=== PATIENT | female | born 1995 | race American Indian/Alaskan Native ===

== ENCOUNTER 2017-03-24 21:54 | Inpatient (IN) | payer MEDICAID, OTHER ==
[2017-03-24 22:48] LABS: Basophils % (Auto) 0.3 % (0.0-1.8); Eosinophils % (Auto) 1.6 % (0.0-4.3); Hematocrit 30.6 % (30.3-42.9); Hemoglobin 10.5 gm/dl (10.1-14.3); Mean Corpuscular HGB Conc 34 % (30-34); Mean Corpuscular Hemoglobin 32 pg (28-32); Mean Corpuscular Volume 94 fl (79-97); Platelet Count 298 K/mm3 (140-440); Red Blood Count 3.25 M/mm3 (3.65-5.03); Red Cell Distribution Width 14.7 % (13.2-15.2); White Blood Count 7.6 K/mm3 (4.5-11.0)
--- NOTE | 2017-03-25 00:57 | Ultrasound Report ---
FINAL REPORT EXAM: US OB \T\gt; = 14 WEEKS FETUS HISTORY: vag bleed premature rupture membranes. COMPARISON: None available. TECHNIQUE: Several real-time grayscale and color Doppler images were obtained. Spectral analysis. FINDINGS: Single IUP. Estimated gestational age 17 weeks 3 days. Estimated delivery date August 29, 2017. No cardiac activity demonstrated. position vertex. Placenta location anterior fundal. Cervix appears to be closed measures less than 1 centimeter length. Marked oligo hydramnios. Largest pocket of amniotic fluid measures 8 millimeters. Limited evaluation of structures due to marked oligohydramnios. IMPRESSION: Marked oligohydramnios compatible patient's history of premature rupture of membranes. Single IUP. Estimated gestational age 17 weeks 3 days. No cardiac activity demonstrated compatible with demise.
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
[2017-03-25] MEDS ORDERED: CYTOTEC PO ONE ×2 (02:43→03:00)
[2017-03-25 02:44] LABS: Bilirubin,Urine NEG (Negative); Blood,Urine MOD (Negative); Ketones,Urine TR mg/dL (Negative); Leukocyte Esterase,Urine NEG (Negative); Mucus,Urine FEW /HPF; Nitrite,Urine NEG (Negative); Protein,Urine <15 mg/dL mg/dL (Negative); Urobilinogen,Urine < 2.0 mg/dL (<2.0); WBC,Urine < 1.0 /HPF (0.0-6.0)
[2017-03-25] MEDS ORDERED: CYTOTEC PO SCH ×2 (02:45→03:00)
--- NOTE | 2017-03-25 02:51 | History and Physical Report ---
History of Present Illness Date of examination: 03/25/17 Chief complaint: Premature rupture of membrane at 17 weeks History of present illness: 22-year-old 002 at 17+4 weeks presents with spontaneous rupture of membranes, she has no FIELD MARKETING COORDINATOR provider at this time. In the emergency room, ultrasound shows Single IUP with estimated gestational age 17+3 weeks (OREN 08/29/17). No cardiac activity demonstrated compatible with demise. Marked oligohydramnios compatible with patient's history of premature appropriate membranes Bimanual exam, I could feel parts in the vagina but the rest of the fetus still surrounded by cervix Minimal to no bleeding noted exam Past History Past Medical History: asthma (Mild), other (Bipolar disorder, anxiety disorder) Past Surgical History: section (# 2 (last in 2014)) [employer]NA[employer] History: denies: chlamydia, gonorrhea, hepatitis B, hepatitis C, herpes, HIV , syphilis, trichomonas Social history: single, full code. denies: smoking, alcohol abuse, prescription drug abuse, IV drug use - Obstetrical History Expected Date of Delivery: 08/29/17 Actual Gestation: 17 Week(s) 4 Day(s) : 3 Para: 2 Medications and Allergies Allergies Allergy/AdvReac Type Severity Reaction Status Date / Time amoxicillin Allergy Hives Unverified 12/07/14 08:19 lactase [From Dairy Aid] Allergy Hives Verified 12/07/14 08:19 Home Medications Medication Instructions Recorded Confirmed Last Taken Type Ferrous Sulfate [Iron Supplement] 325 mg PO DAILY 12/07/14 12/07/14 12/06/14 21: 00 History 1 Pnv95/Ferrous Fumarate/FA 1 each PO QDAY 12/07/14 12/07/14 12/05/14 21:00 History [ Vitamins] 1 Ranitidine HCl [Ranitidine 150mg 150 mg PO BID PRN 12/07/14 12/07/14 12/03/14 09 :00 History Cap] 1 Active Meds: Active Medications Misoprostol (Cytotec) 400 mcg PO Q4HR GM Stop: 03/25/17 10:01 Review of Systems Constitutional: no fever, no chills Eyes: no blurred vision, no diplopia Cardiovascular: no chest pain, no orthopnea, no palpitations, no syncope, no lightheadedness, no shortness of breath, no dyspnea on exertion, no high blood pressure Respiratory: no cough, no cough with sputum, no hemoptysis, no shortness of breath, no dyspnea on exertion Gastrointestinal: abdominal pain (intermittent crampy abdominal pain), no nausea , no vomiting Genitourinary: vaginal bleeding (Mild) - Vital Signs Vital signs: Vital Signs Temp Pulse Resp BP Pulse Ox 99.5 F 75 18 101/66 100 03/24/17 21:59 03/24/17 21:59 03/24/17 21:59 03/24/17 21:59 03/24/17 21:59 Temp Pulse Resp BP Pulse Ox 99.5 F 77 21 97/60 100 03/24/17 21:59 03/25/17 02:30 03/25/17 02:30 03/25/17 02:30 03/25/17 02:30 - Physical Exam Cardiovascular: Regular rate, Normal S1, Normal S2 Lungs: Positive: Clear to auscultation, Normal air movement Abdomen: Positive: normal appearance, soft. Negative: distention, tenderness, guarding, rigidity Genitourinary (Female): Positive: normal external genitalia Uterus: Negative: tender Adnexa: both: normal Extremities: Positive: normal - Obstetrical Cervical Dilatation: 6 Results Result Diagrams: 03/24/17 22:17 Abnormal lab results 03/24/17 03/24/17 Range/Units 22:17 22:17 RBC 3.25 L (3.65-5.03) M/mm3 Vernon % (Auto) 10.8 H (0.0-7.3) % HCG, Quant 77201 H (0-4) mIU/mL All other labs normal. Assessment and Plan A: 22-year-old 00 to a 17+4 weeks with PPROM followed by demise -Stable P: -Admit -UDS -Misoprostol 400 g every 4 hours 3 doses -Nothing by mouth for now - Patient Problems (1) 17 weeks gestation of Current Visit: Yes Status: Acute (2) premature rupture of membranes with onset of labor more than 24 hours following rupture Current Visit: Yes Status: Acute (3) demise Current Visit: Yes Status: Acute
[2017-03-25] MEDS ORDERED: MINERAL OIL PO PRN (02:58)
[2017-03-25] MEDS ORDERED: XYLOCAINE 2% INFILTRATI ONE (02:58)
[2017-03-25] MEDS ORDERED: BRETHINE IVP PRN (02:58)
[2017-03-25] MEDS ORDERED: BRETHINE SUB-Q PRN (02:58)
[2017-03-25] MEDS ORDERED: ZOFRAN IV PRN (02:58)
[2017-03-25] MEDS ORDERED: ePHEDrine SULFATE IV PRN (02:58)
[2017-03-25] MEDS ORDERED: PITOCin/NS 20 UNIT/1000ML DRIP 20 UNITS/1,000 ML BAG IV SCH (03:00)
[2017-03-25] MEDS ORDERED: PITOCin/NS 30 UNIT/500ML 30 UNITS/500 ML BAG IV SCH (03:00)
[2017-03-25] MEDS: MORPHINE IV PRN ×2 (05:20→20:15)
[2017-03-25] MEDS: LACTATED RINGERS 1,000 ML IV SCH ×2 (06:14→21:40)
[2017-03-25 06:52] LABS: Urine Drugs of Abuse Note Disclamer
[2017-03-25] MEDS: CYTOTEC PO SCH ×4 (07:25→19:37)
--- NOTE | 2017-03-25 14:23 | Event Note ---
Date: 03/25/17 Called to see patient who desires to go due to social reasons. I spent a good amount of time discussing risks of this with the patient, advised patient admitted to remain in-house until complete delivery of demise. Discussed risks of infection with sepsis or bleeding, patient still claims she will need to go and will sign out AGAINST MEDICAL ADVICE.
[2017-03-25] MEDS ORDERED: CYTOTEC ONE (16:14)
--- NOTE | 2017-03-26 00:12 | Event Note ---
Date: 03/26/17 Just notified patient did not leave AGAINST MEDICAL ADVICE as previously planned. Remains afebrile with no abdominal pain or foul discharge. Plan at this point is to stop Misoprostol course for now, her last dose was at ~ 11 PM. Will restart Misoprostol 400 g every 4 hrs 5 doses today after breakfast at around ~ 8 to 9 AM. We'll obtain CBC later this morning
[2017-03-26] MEDS: MORPHINE IV PRN (02:15)
[2017-03-26 07:21] LABS: Basophils % (Auto) 0.3 % (0.0-1.8); Eosinophils % (Auto) 1.1 % (0.0-4.3); Hemoglobin 9.6 gm/dl (10.1-14.3); Mean Corpuscular HGB Conc 34 % (30-34); Mean Corpuscular Hemoglobin 32 pg (28-32); Mean Corpuscular Volume 94 fl (79-97); Platelet Count 252 K/mm3 (140-440); Red Blood Count 2.99 M/mm3 (3.65-5.03); Red Cell Distribution Width 14.6 % (13.2-15.2); White Blood Count 7.1 K/mm3 (4.5-11.0)
[2017-03-26] MEDS ORDERED: D5LR 1,000 ML IV ONE (07:53)
--- NOTE | 2017-03-26 07:58 | Post Operative Note ---
Pre-op diagnosis: 17 week IUFD Post-op diagnosis: same Findings: Parous os with fetus in the vagina Procedure: Uncomplicated delivery of 17 week IUFD over intact perineum. Placenta still attached in utero Anesthesia: other (IV narcotic) Surgeon: FEDE ODONNELL Estimated blood loss: minimal Pathology: list (17 wk Fetus) Condition: stable Disposition: other (Await delivery of placenta)
[2017-03-26] MEDS ORDERED: CYTOTEC PO SCH (08:00)
[2017-03-26] MEDS ORDERED: D5LR 1,000 ML IV SCH (08:00)
[2017-03-26] MEDS ORDERED: CYTOTEC VG SCH (12:00)
--- NOTE | 2017-03-26 13:20 | Event Note ---
Date: 03/26/17 Placenta still retained at this time. Has received second dose of Cytotec since delivery of fetus. Plan is to proceed to the OR for retained placenta if no delivery within the hour.
--- NOTE | 2017-03-26 14:27 | Anesthesia Consultation ---
Anesthesia Consult and Med Hx Date of service: 03/26/17 - Airway Anesthetic Teeth Evaluation: Good ROM Head & Neck: Adequate Mental/Hyoid Distance: Adequate Mallampati Class: Class II Intubation Access Assessment: Probably Good - Pulmonary Exam CTA: Yes - Cardiac Exam Cardiac Exam: RRR - Pre-Operative Health Status ASA Pre-Surgery Classification: ASA2 Proposed Anesthetic Plan: MAC - Pulmonary Hx Asthma: Yes COPD: No Hx Pneumonia: No - Cardiovascular System Hx Hypertension: No - Central Nervous System Hx Seizures: No Hx Psychiatric Problems: No - Endocrine Hx Renal Disease: No Hx End Stage Renal Disease: No Hx Hypothyroidism: No Hx Hyperthyroidism: No - Hematic Hx Anemia: Yes Hx Sickle Cell Disease: No - Other Systems Hx Alcohol Use: Yes (socially when not )
--- NOTE | 2017-03-26 14:27 | Anesthesia Day of Surgery ---
Anesthesia Day of Surgery - Day of Surgery Patient Examined: Yes Patient H&P Reviewed: Yes Patient is NPO: Yes
[2017-03-26] MEDS ORDERED: VERSED ONE ×2 (14:48→14:51)
[2017-03-26] MEDS ORDERED: SUBLIMAZE ONE (14:50)
[2017-03-26] MEDS ORDERED: DIPRIVAN 10 MG/ML IV ONE (14:53)
[2017-03-26] MEDS ORDERED: XYLOCAINE MPF 2% ONE (14:54)
[2017-03-26] MEDS ORDERED: METHERGINE IM ONE (15:11)
[2017-03-26] MEDS ORDERED: LACTATED RINGERS 1,000 ML ONE (15:23)
--- NOTE | 2017-03-26 15:41 | Operative Report ---
Operative Report Operative Report: DATE: 03/26/2017 PREOPERATIVE DIAGNOSIS: Retained placenta at 17 weeks POSTOP DIAGNOSIS: As above NAME OF PROCEDURE: Suction D&C SURGEON: FEDE ODONNELL MD PISTON MAKER: None ANESTHESIA: LMA EBL: 200-300 mL PATHOLOGY SPECIMEN: Products of conception URINE OUTPUT: 5 mL at the end of procedure FINDINGS: Parous OS, uterus measures 9 cm, brisk bleeding noted during procedure now controlled DESCRIPTION OF PROCEDURE: Patient taken to the operating room where she was prepped and draped in sterile fashion placed in dorsolithotomy position. A speculum was placed in the vagina and single-tooth was used to grab the anterior lip of the uterus, Uterus was then sounded to 9 cm. A size 14 suction curet was then advanced into the patient's uterus gently and in no rotary manner the uterus was cleared of all products of conception. Using a sharp curet, all 4 quadrants were sampled with remnant tissue not noted. All instruments were then withdrawn from the patient's vagina, patient received 800 g of Cytotec AR. She tolerated the procedure well and instrument counts were correct 2 she is transferred to PACU in stable condition thank you
[2017-03-26] MEDS ORDERED: LANSINOH TP PRN (15:42)
[2017-03-26] MEDS ORDERED: MYLICON PO PRN (15:42)
[2017-03-26] MEDS ORDERED: SENOKOT PO PRN (15:42)
[2017-03-26] MEDS ORDERED: NARCAN 0.4 MG/1 ML IV PRN (15:42)
[2017-03-26] MEDS ORDERED: TUCKS PAD TP PRN (15:42)
[2017-03-26] MEDS ORDERED: NORCO 5/325 PO PRN (15:42)
[2017-03-26] MEDS ORDERED: ANUCORT-HC PR PRN (15:42)
[2017-03-26] MEDS ORDERED: TYLENOL PO PRN (15:42)
[2017-03-26] MEDS ORDERED: METHERGINE IM PRN (15:46)
[2017-03-26] MEDS ORDERED: PITOCin/NS 20 UNIT/1000ML DRIP 20 UNITS/1,000 ML BAG IV SCH (16:00)
[2017-03-26] MEDS ORDERED: SILVER NITRATE TP ONE (16:00)
[2017-03-26] MEDS ORDERED: SODIUM CHLORIDE FLUSH SYRINGE 10 ML IV NR (16:00)
--- NOTE | 2017-03-26 16:01 | Post Anesthesia Evaluation ---
- Post Anesthesia Evaluation Patient Participated: Yes Airway Patent: Yes Stable Respiratory Function: Yes Nausea/Vomiting: No Temp > 96.8F: Yes Pain Manageable: Yes Adequeate Hydration: Yes Anesthesia Complications: No Block Receding Appropriately: Not Applicable Patient on Ventilator: No
[2017-03-26] MEDS: DOXYCYCLINE HYCLATE 100 MG in NACL 0.9% 250ML 250 ML IV SCH (16:50)
[2017-03-27] MEDS: DOXYCYCLINE HYCLATE 100 MG in NACL 0.9% 250ML 250 ML IV SCH (04:47)
[2017-03-27 05:40] LABS: Hematocrit 29.3 % (30.3-42.9); Hemoglobin 10.1 gm/dl (10.1-14.3)
--- NOTE | 2017-03-27 09:08 | Progress Note ---
Assessment and Plan POD# 1 s/p suction D&C and evacuation of 17 wk IUFD and Retained placenta -Stable P: -Discharge home -Follow-up in clinic in 1-2 weeks - Patient Problems (1) 17 weeks gestation of Current Visit: Yes Status: Acute (2) premature rupture of membranes with onset of labor more than 24 hours following rupture Current Visit: Yes Status: Acute (3) demise Current Visit: Yes Status: Acute Subjective - Subjective Date of service: 03/27/17 Principal diagnosis: HD# 3 Interval history: Patient seen and examined, stable and doing well. No fever or chills no abdominal pain no vaginal bleeding Patient reports: appetite normal, voiding normally, pain well controlled, flatus , ambulating normally, no dizzy ambulation, no nauseated Converse: Objective - Vital Signs Latest vital signs: Vital Signs Temp Pulse Pulse Pulse Pulse Resp BP 03/27/17 04:25 98.4 F 80 80 18 03/27/17 01:38 98.9 F 73 73 18 03/26/17 19:20 99.0 F 93 H 93 H 18 03/26/17 17:55 99.3 F 89 89 18 03/26/17 15:45 137 H 24 113/51 03/26/17 15:44 99.1 F 137 H 137 H 22 03/26/17 14:10 107 H 97/55 03/26/17 13:56 100 H 92/53 03/26/17 13:41 96 H 90/55 03/26/17 13:26 97 H 97/55 03/26/17 13:11 97 H 89/53 03/26/17 13:05 105 H 88/51 03/26/17 12:11 90 91/50 03/26/17 11:56 109 H 77/46 03/26/17 11:51 92 H 03/26/17 11:46 92 H 03/26/17 11:41 95 H 03/26/17 11:40 90 99/56 03/26/17 11:36 99 H 03/26/17 11:31 92 H 03/26/17 11:26 91 H 03/26/17 11:25 93 H 95/52 03/26/17 11:21 93 H 03/26/17 11:16 91 H 03/26/17 11:11 93 H 95/53 03/26/17 11:06 89 03/26/17 11:01 88 03/26/17 10:56 86 82/42 03/26/17 10:51 85 03/26/17 10:46 92 H 03/26/17 10:41 91 H 93/50 03/26/17 10:36 92 H 03/26/17 10:31 89 03/26/17 10:26 92 H 03/26/17 10:25 107 H 88/53 03/26/17 10:21 92 H 03/26/17 10:16 90 03/26/17 10:11 89 03/26/17 10:10 85 89/50 03/26/17 10:05 85 03/26/17 10:04 96 H 03/26/17 10:00 87 03/26/17 09:55 88 85/47 03/26/17 09:50 88 03/26/17 09:45 82 03/26/17 09:41 86 80/42 03/26/17 09:40 93 H 03/26/17 09:35 94 H 03/26/17 09:30 91 H 03/26/17 09:26 86 92/51 03/26/17 09:25 81 03/26/17 09:20 89 03/26/17 09:19 94 H 03/26/17 09:15 89 03/26/17 09:12 95 H 96/53 03/26/17 09:10 96 H BP BP Pulse Ox 03/27/17 04:25 90/57 03/27/17 01:38 82/47 03/26/17 19:20 96/59 03/26/17 17:55 102/61 03/26/17 15:45 90 03/26/17 15:44 113/51 03/26/17 14:10 03/26/17 13:56 03/26/17 13:41 03/26/17 13:26 03/26/17 13:11 03/26/17 13:05 03/26/17 12:11 03/26/17 11:56 03/26/17 11:51 100 03/26/17 11:46 100 03/26/17 11:41 100 03/26/17 11:40 03/26/17 11:36 98 03/26/17 11:31 100 03/26/17 11:26 99 03/26/17 11:25 03/26/17 11:21 98 03/26/17 11:16 100 03/26/17 11:11 98 03/26/17 11:06 100 03/26/17 11:01 100 03/26/17 10:56 98 03/26/17 10:51 98 03/26/17 10:46 99 03/26/17 10:41 99 03/26/17 10:36 100 03/26/17 10:31 100 03/26/17 10:26 100 03/26/17 10:25 03/26/17 10:21 100 03/26/17 10:16 100 03/26/17 10:11 99 03/26/17 10:10 03/26/17 10:05 100 03/26/17 10:04 94 03/26/17 10:00 100 03/26/17 09:55 100 03/26/17 09:50 99 03/26/17 09:45 99 03/26/17 09:41 03/26/17 09:40 99 03/26/17 09:35 98 03/26/17 09:30 98 03/26/17 09:26 03/26/17 09:25 97 03/26/17 09:20 97 03/26/17 09:19 94 03/26/17 09:15 97 03/26/17 09:12 03/26/17 09:10 98 Intake and Output 03/26/17 03/27/17 03/27/17 22:59 06:59 14:59 Intake Total 1790 Output Total 2600 100 Balance -810 -100 Intake: IV 1550 Doxycycline Hyclate 100 250 mg In NaCl 0.9% 250Ml 250 ml @ 250 mls/hr IV Q12HR GM Rx#:[id number] PITOCin/NS 20 UNIT/1000ML 1000 DRIP 20 units In 1,000 ml @ 125 mls/hr IV DIRECT GM Rx#:[id number] Oral 240 Output: Urine 2600 100 Indwelling Catheter 2000 Void 100 Other: Total, Intake Amount 240 Total, Output Amount 1400 100 Estimated Blood Loss 200 - Exam Abdomen: Present: normal appearance, soft. Absent: distention, tenderness, guarding Uterus: Present: fundal height below umbilicus. Absent: tenderness Extremities: Present: normal - Labs Labs: Abnormal lab results 03/27/17 Range/Units 05:23 Hct 29.3 L (30.3-42.9) %
--- NOTE | 2017-03-27 09:10 | Discharge Summary ---
Providers - Providers Date of Admission: 03/25/17 02:58 Date of discharge: 03/27/17 Attending physician: FEDE ODONNELL Primary care physician: ASSISTANT PRINTER FLOOR COVERING Hospitalization Reason for admission: induction of labor, other (IUFD at 17 weeks) Delivery: Procedure: other (suction D&C for retained placenta) Procedure details: See op note Other procedures: none complications: none Discharge diagnosis: other (IUFD at 17 weeks status post suction D&C for retained placenta) Hospital course: 22-year-old 002 at 17+4 weeks presents with spontaneous rupture of membranes, she has no WARDROBE CONSULTANT provider at this time. In the emergency room, ultrasound shows Single IUP with estimated gestational age 17+3 weeks (OREN 08/29/17). No cardiac activity demonstrated compatible with demise. Marked oligohydramnios compatible with patient's history of premature appropriate membranes Bimanual exam, I could feel parts in the vagina but the rest of the fetus still surrounded by cervix Minimal to no bleeding noted exam Patient was admitted to the floor and started on Cytotec. In 24 hours, patient passed the fetus however placenta was retained. He was taken to the OR for suction D&C with evacuation of placenta. She had uncomplicated post procedure course. She is discharged home in stable condition Condition at discharge: Good Disposition: DC-01 TO HOME OR SELFCARE - Discharge Diagnoses (1) S/P D&C (status post dilation and curettage) Status: Acute (2) 17 weeks gestation of Status: Acute (3) premature rupture of membranes with onset of labor more than 24 hours following rupture Status: Acute (4) demise Status: Acute Plan - Discharge Medications Prescriptions: Ibuprofen [Motrin 600 MG tab] 600 mg PO Q8H PRN #30 tablet PRN Reason: Pain Multivitamin with Iron [Multivitamins with Iron] 1 each PO DAILY #30 tablet - Provider Discharge Summary Activity: no sex for 6 weeks, no heavy lifting 4 weeks, no strenuous exercise Diet: routine Additional instructions: [] Smoking cessation referral if applicable(refer to patient education folder for contact #) [] Refer to [facility] Booklet Call your doctor immediately for: * Fever > 100.5 * Heavy vaginal bleeding ( >1 pad per hour) * Severe persistent headache * Shortness of breath * Reddened, hot, painful area to leg or breast * Drainage or odor from incision. * Keep incision clean and dry at all times and follow doctor's instructions regarding bathing/showering - Follow up plan Follow up: PRIMARY CARE,MD [Primary Care Provider] - 7 Days
[2017-03-27] MEDS ORDERED: PRENATAL VITAMIN PO SCH (10:00)
[2017-03-27] MEDS ORDERED: FEOSOL PO SCH (10:00)
[2017-03-27 11:53] VITALS: BP 91/55
== END 2017-03-27 12:00 | disposition home or self-care (01) | DRG 770 ==
LOC: ED 21:54 → LD 03-25 02:58 → OB 03-26 17:52
PROVIDERS: ADMIT Obstetrics & Gynecology Gynecology; ATTEND Obstetrics & Gynecology Gynecology
PROC: 10D17ZZ Extraction of Products of Conception, Retained, Via Natural or Artificial Opening (ICD-10-PCS; principal; 2017-03-26)
DX: O03.4 Incomplete spontaneous abortion without complication (principal); O36.4XX0 Maternal care for intrauterine death, not applicable or unspecified; O42.119 Preterm premature rupture of membranes, onset of labor more than 24 hours following rupture, unspecified trimester; F31.9 Bipolar disorder, unspecified; F41.9 Anxiety disorder, unspecified; K21.9 Gastro-esophageal reflux disease without esophagitis; J45.909 Unspecified asthma, uncomplicated; Z3A.17 17 weeks gestation of pregnancy
CPT/HCPCS: 36415; 76805; 80307; 81001; 84702; 85014; 85018; 85025; 86850; 86900; 86901; 88305; 99285; J2210; J2250; J2270; J2590; J2704; J3010; J7050; J7120; J7121